=== PATIENT | male | born 1985 | race African-American/Black ===

== ENCOUNTER 2016-07-28 20:50 | Emergency (ER) | payer BC, OTHER ==
[~2016-07-28 20:50] MED LIST: BENZONATATE PO; VIBRAMYCIN100 M1 PO; VICODIN 5/1 TAB 5/50 PO; VOLTAREN50 MG PO
[2016-07-28] MEDS ORDERED: NO MEDICATIONS (21:33)
[2016-09-19] MEDS ORDERED: LISINOPRIL (20:12)
== END 2016-07-28 21:00 | disposition left against medical advice (07) ==
LOC: CED 20:50
DX: Z53.29 Procedure and treatment not carried out because of patient's decision for other reasons (principal)

== ENCOUNTER 2016-07-28 22:25 | Emergency (ER) | payer BC, OTHER ==
[~2016-07-28 22:25] MED LIST changes: +NO MEDICATIONS
[2016-09-19] MEDS ORDERED: LISINOPRIL (20:12)
== END 2016-07-28 22:30 | disposition home or self-care (01) ==
LOC: CED 22:25
DX: J06.9 Acute upper respiratory infection, unspecified (principal); I10 Essential (primary) hypertension; F17.210 Nicotine dependence, cigarettes, uncomplicated
CPT/HCPCS: 99282

== ENCOUNTER 2016-09-19 21:27 | Emergency (ER) | payer BC, OTHER ==
[~2016-09-19 21:27] MED LIST changes: +LISINOPRIL
== END 2016-09-19 21:33 | disposition home or self-care (01) ==
LOC: SED 21:27
DX: L23.5 Allergic contact dermatitis due to other chemical products (principal); I10 Essential (primary) hypertension; F17.210 Nicotine dependence, cigarettes, uncomplicated; Z79.899 Other long term (current) drug therapy
CPT/HCPCS: 99282

== ENCOUNTER 2017-01-16 15:14 | Emergency (ER) | payer BC ==
[2017-01-16] MEDS ORDERED: [UNRECOGNIZED DRUG - OTHER] PO (15:21)
== END 2017-01-16 16:50 | disposition home or self-care (01) ==
LOC: SED 15:14
DX: L30.9 Dermatitis, unspecified (principal); L03.116 Cellulitis of left lower limb; L03.115 Cellulitis of right lower limb; I10 Essential (primary) hypertension; F17.210 Nicotine dependence, cigarettes, uncomplicated; Z79.899 Other long term (current) drug therapy
CPT/HCPCS: 99282

== ENCOUNTER 2017-02-10 22:10 | Emergency (ER) | payer BC ==
[~2017-02-10] VITALS: Ht 185.4 cm; Wt 113.4 kg
[~2017-02-10 22:10] MED LIST changes: +[UNRECOGNIZED DRUG - OTHER] PO
== END 2017-02-10 23:32 | disposition home or self-care (01) ==
LOC: SED 22:10
DX: S39.012A Strain of muscle, fascia and tendon of lower back, initial encounter (principal); I10 Essential (primary) hypertension; F17.210 Nicotine dependence, cigarettes, uncomplicated; X58.XXXA Exposure to other specified factors, initial encounter
CPT/HCPCS: 99283